=== PATIENT | female | born 1960 | race Caucasian/White ===

== ENCOUNTER 2018-01-11 13:15 | Emergency (ER) | payer BC, SELFPAY ==
[2018-01-11 13:18] VITALS: BP 155/82; PULSE 50; PULSE 55; RESP 17; TEMP 36.7; O2SAT 98; O2SAT 99; BMI 28.0
--- NOTE | 2018-01-11 13:38 | RAD_ITS ---
STUDY: X-RAY CHEST REASON FOR EXAM: Female, 57 years old. Left-sided chest wall pain. TECHNIQUE: Single AP portable view of the chest. COMPARISON: None. FINDINGS: EKG electrodes are seen. Hyperinflation. Minimal increased markings at the left lung base suggestive of linear atelectasis and/or scarring. There is no demonstrated pleural abnormality. Normal size heart. Normal mediastinum and lakshmi. Normal visualized pulmonary arteries. Normal visualized aortic arch and descending thoracic aorta. Normal visualized thoracic spine. Normal visualized ribs, clavicles, and shoulders. There is no demonstrated abnormality of the visualized soft tissue structures of the upper abdomen. RAD/Chest 1 View (Portable) IMPRESSION: Hyperinflation. Linear atelectasis and/or scarring at the left lung base. Electronically Signed: Judd Canales MD at 14:05 EST Tel [phone], Service support ,
--- NOTE | 2018-01-11 13:38 | EKG12_ITS ---
Test Reason : CP Blood Pressure : / mmHG Vent. Rate : 050 BPM Atrial Rate : 050 BPM P-R Int : 148 ms QRS Dur : 090 ms QT Int : 464 ms P-R-T Axes : 029 038 063 degrees QTc Int : 423 ms Sinus bradycardia Otherwise normal ECG Confirmed by ROMELIA CEJA, JOSELO ([id number]), editor sound CARMEN HUNT ([id number] on 01/15/2018 1:16:24 PM Referred By: COLT Confirmed By:JOSELO LEÓN MD
[2018-01-11 13:53] LABS: Absolute Lymphocyte Count 1.26 X10^3/ul (0.83-4.51); Absolute Neutrophil Count 3.2 X10^3/uL (2.0-7.7); Basophil# 0.02 X10^3/uL; Basophil% 0.4 % (0-1); Eosinophil# 0.17 X10^3/uL; Eosinophils% 3.4 % (0-5); Hematocrit 38.3 % (37-47); Hemoglobin 13.1 g/dl (12.0-15.0); Lymphocyte # 1.26 X10^3/ul (4.0); Lymphocyte % 24.9 % (19-41); Mean Corp Hgb Conc 34.2 g/gl (32-36); Mean Corpuscular Hgb 32.4 pg (27.0-32.0); Mean Corpuscular Volume 94.8 fL (81-99); Mean Platelet Vol. 11.2 fl (6.2-12.0); Monocyte# 0.44 X10^3/uL; Monocyte% 8.7 % (0-10); Neutrophil # 3.17 X10^3/uL (2.7-7.7); Neutrophil % 62.4 % (47-70); Platelet Count 194 K/mm3 (150-450); RBC Distribution Width CV 13.2 % (11.6-14.6); RBC Distribution Width SD 44.4 fl (35.1-43.9); Red Blood Count 4.04 M/mm3 (4.2-5.4); White Blood Count 5.1 K/mm3 (4.4-11.0)
[2018-01-11 13:54] LABS: POSITIVE COUNT NO; POSITIVE DIFFERENTIAL NO; POSITIVE MORPHOLOGY NO
--- NOTE | 2018-01-11 13:56 | ED.VISSUMM ---
- ER Visit Summary Date of Service: 01/11/18 Chief Complaint: PVCs and brief left-sided chest discomfort lasting seconds that is currently resolved History of Present Illness: The patient is a 57 F no prior history of cardiac disease. She has a history of mitral valve prolapse, hypothyroidism, hypertension and high cholesterol. She has had multiple stress tests on the past have been negative. She has never had a heart cath. Since she just felt off today. She had some lightheadedness. And some sharp brief left-sided chest pain that lasted seconds. No radiation to her jaw, neck or arm. It was not heavy. She did not become diaphoretic. Thought she was coming down with something she denies any recent exertional chest pain or exertional shortness of breath. 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 Physical Examination: Well-appearing middle-age female. Vital signs are stable afebrile. Pulse ox 99% room air no signs of hypoxia. HEENT exam unremarkable. Neck nontender no JVD. Lungs clear to auscultation bilaterally. Heart regular rate and rhythm no murmur. Rate about 55-60. Chest wall nontender. Abdomen soft nontender. She is moving all 4 extremities. Neurovascular intact. Calves are nontender without cords nor any edema. Neurologically she is awake alert without focal motor deficits. Test Results: BC normal. BMP normal. Troponin normal. Chest x-ray no acute abnormality normal cardiac silhouette. Read by myself the radiologist. EKG sinus bradycardia rate of 50 with no acute abnormality. Emergency Department Course and Treatment: She will undergo a cardiac workup. My clinical suspicion for is being cardiac disease is very low. She has no risk factors for DVT or PE. No history. Treatment Plan: Repeat exam at 1520 she is doing well. Exam is unchanged. She denies and her went over her workup. They are comfortable with her being discharged home. Disposition: discharge Impression: Acute atypical chest pain resolved of uncertain etiology This note was generated with [employer] dictation software. It may contain incorrect words, spelling, and punctuation that were not noted in review of the chart prior to signing ED Disposition - Plan for ED Patient: Chief Complaint: Chest Pain Referrals: Rusty Otoole Jr., MD [Primary Care Provider] -
[2018-01-11 14:14] LABS: Anion Gap 8 (5-15); BUN 11 mg/dL (7-18); BUN/Creat Ratio 17.7 RATIO (10-20); Calcium,Total 8.8 mg/dL (8.5-10.1); Chloride 109 mmol/L (98-107); Creatinine, Serum 0.62 mg/dL (0.55-1.02); EST Glomerular Filtration Rate 105 mL/min (>60); Est Glom Filt Rate - Afr Amer 127 mL/min (>60); Estimated Creatinine Clearance 92.59 ml/min; Glucose 91 mg/dL (74-106); Sodium Level 142 mmol/L (136-145)
--- NOTE | 2018-01-11 15:24 | ED.DEP ---
ED Disposition - Plan for ED Patient: Disposition: Home or Assisted Living Chief Complaint: Chest Pain Instructions: ED Chest Pain Atypical Unkn Cause Referrals: Rusty Otoole Jr., MD [Primary Care Provider] - 3-5 Days if not improving Additional Instructions: All your tests were normal today. Follow-up your primary care physician or return if you are feeling worse.
[2018-01-11 15:42] VITALS: BP 170/82; PULSE 79; RESP 15; O2SAT 97
== END 2018-01-11 15:46 | disposition home or self-care (01) ==
PROVIDERS: Emergency Provider Emergency Medicine; Family Provider Internal Medicine; PCP Internal Medicine
DX: R07.89 Other chest pain (principal); I34.1 Nonrheumatic mitral (valve) prolapse; E03.9 Hypothyroidism, unspecified; I10 Essential (primary) hypertension; E78.00 Pure hypercholesterolemia, unspecified; Z87.891 Personal history of nicotine dependence; Z79.899 Other long term (current) drug therapy
CPT/HCPCS: 71045; 80048; 84484; 85025; 93005; 99285; J7030